=== PATIENT | male | born 1990 | race Caucasian/White ===

== ENCOUNTER 2021-10-05 12:05 | Outpatient (REF) | payer BC, SELFPAY ==
[2021-10-06 15:25] LABS: COVID-19 RT-PCR UVMMC Result Negative (Negative)
== END 2021-10-05 12:06 | disposition home or self-care (01) ==
LOC: LBN 12:05
PROVIDERS: PCP Family Medicine; Visit Provider Nurse Practitioner Family
DX: Z20.822 Contact with and (suspected) exposure to COVID-19 (principal)
CPT/HCPCS: U0003